=== PATIENT | female | born 1980 | race Caucasian/White ===

== ENCOUNTER 2023-05-25 06:47 | Day surgery (SDC) | payer OTHER ==
[~2023-05-25] VITALS: Ht 167.6 cm; Wt 102.1 kg
[~2023-05-25 06:47] MED LIST: CHLO125TA PO; FAMO20TA5; METF-838 PO; METO1TAB32; NS 1,000 ML IV ONE; PANT40TA29
[2023-05-25] MEDS ORDERED: LIDOCAINE 2% 100MG/5ML SDV (FOR ANES.) As Ordered ONE (06:57)
[2023-05-25] MEDS ORDERED: propofoL 200 MG/20 ML VIAL As Ordered ONE ×2 (06:57→06:58)
[2023-05-25] MEDS ORDERED: fentaNYL 100 MCG/2 ML INJECTION As Ordered ONE (07:12)
[2023-05-25 08:25] VITALS: BP 125/69; O2SAT 96
== END 2023-05-25 08:31 | disposition home or self-care (01) ==
LOC: M OPP 06:47
PROVIDERS: ATTEND Internal Medicine Gastroenterology
DX: R19.4 Change in bowel habit (principal); R12 Heartburn; F17.200 Nicotine dependence, unspecified, uncomplicated; Z79.83 Long term (current) use of bisphosphonates; Z79.84 Long term (current) use of oral hypoglycemic drugs; Z79.899 Other long term (current) drug therapy; Z91.018 Allergy to other foods
CPT/HCPCS: 43235; 45378; J3010